=== PATIENT | female | born 1940 | race Caucasian/White ===

== ENCOUNTER 2025-09-20 19:04 | Emergency (ER) | payer OTHER ==
[~2025-09-20] VITALS: Ht 165.1 cm; Wt 47.8 kg
--- NOTE | 2025-09-20 19:55 | DVH ---
COMPUTERIZED TOMOGRAPHY OF THE HEAD WITHOUT CONTRAST REASON FOR STUDY: Fall, head injury, on anticoagulation COMPARISON: None TECHNIQUE: Helical tomographic scans were obtained through the brain. 2-D coronal and sagittal reformatted images are provided. Radiation optimization: All CT scans at this facility use at least one of these dose optimization techniques: Automated exposure control mA and/or kV adjustment per patient size (includes targeted exams where dose is matched to clinical indication) or iterative reconstruction. RADIATION DOSE: CTDI: 50 mGy DLP: 800 mGy-cm FINDINGS: No suspicious intracranial hyperdensity to suggest acute blood. There is no mass effect nor midline shift. There is mild generalized volume loss with compensatory enlargement of the CSF spaces. There is no hydrocephalus. The suprasellar cistern is intact. There are scattered periventricular and deep white matter hypodensities that are most consistent with chronic microangiopathic changes. The calvarium is intact. The visualized mastoid air cells and paranasal sinuses are clear. There is moderate left parietal scalp hematoma. IMPRESSION: No acute intracranial abnormality. Moderate left parietal scalp hematoma. Mild generalized volume loss with chronic small vessel ischemic change.
[2025-09-20 20:10] LABS: INR 1.0 (0.9-1.15); Prothrombin Time 10.6 sec (9.3-11.8)
--- NOTE | 2025-09-20 20:26 | ED.PDOC ---
History of Present Illness HPI Comments 84-year-old female reports she was carrying kidney litter, slipped on a bed of leaves falling and hitting her head. She denies loss of consciousness. She has some mild left lower back pain. Hematoma to the left parietal area. She is on Plavix. Patient denies any dizziness, shortness of breath, chest pain, weakness associated with the event. REVIEW OF SYSTEMS: General: No fever, no chills, or fatigue HEENT: No sore throat, no earache, no congestion, no neck pain. Cardiac: No chest pain. No palpitations. Lungs: No shortness of breath, no cough. GI: No nausea, no vomiting, no diarrhea, no constipation, no abdominal pain : No dysuria, frequency, or urgency. No hematuria. Musculoskeletal: No joint pain , no joint swelling, no extremity edema. Skin: No rash, no itching. Neuro: No headache, no dizziness, no weakness (And as sated in HPI) PHYSICAL EXAM: GEN: Patient alert, in no acute distress HEENT: HEMATOMA TO LEFT PARIETAL SCALP. NO OVERLYING LACERATION Facial bones without deformities or tenderness EYES: no scleral icterus or conjunctival injection. Extraocular muscles intact without nystagmus or diplopia. No proptosis or enophthalmos. EARS: Normal-appearing pinnae. NECK: No discolorations or edema. No C-spine tenderness. CVS: S1-S2 heard, regular rate and rhythm, no murmur RESPIRATORY: No respiratory distress. MUSC: No gross deformities. Tolerates full range of motion of extremities without tenderness. BACK: Spine without bony tenderness. No step-offs. PELVIC: Pelvis stable, nontender to lateral compression NEURO: Alert and oriented to person, place and time. GCS 15. Cranial nerves II through XII intact. Sensation grossly intact. Strength 5 out of 5 in bilateral upper and lower extremities. Patient is able to ambulate swiftly without difficulty. Able to get it up and down from a chair without difficulty SKIN: Warm and well perfused. No lacerations, bruises, discoloration or abrasions. 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 Was a procedure done?: No Differential Dx Considerations may include: DDX includes MSK trauma, facial fractures, ICH or traumatic SAH, C-spine injury, other X-Ray, Labs, Meds, VS Vital Signs Date Time Temp Pulse Resp B/P (MAP) Pulse Ox O2 Delivery O2 Flow Rate FiO2 09/20/25 19:06 97.5 67 22 142/74 95 97.5 Lab Test 09/20/25 19:44 Range/Units Prothrombin Time 10.6 9.3-11.8 sec Prothrombin Time INR 1.00 0.9-1.15 Time of 1ST Reevaluation: 20:18 Reevaluation 1ST: Unchanged Patient Education/Counseling: Need For Follow Up Family Education/Counseling: No Family Present SEPSIS Sepsis Screen Date sepsis recognized/suspect: Sep 20, 2025 Time Sepsis recognized/suspect: 1912 Recent Procedure: No On Antibiotic Therapy: No Respiratory Rate >20: No Heart Rate >90: No Temp<36 C (96.8 F) or >38.3 C: No SBP <90 or MAP <65 mmHG: No New Acute Mental Status Change: No Is the patient on CPAP, BIPAP,: No Physician Orders Head Without Contrast (09/20/25 19:15) Naproxen Tablet (Naprosyn Tablet) (09/20/25 20:30) Acetaminophen Tab Or Cap (Tylenol Tablet (09/20/25 20:30) Apply Ice To Affected Area (09/20/25 20:16) Vital Signs Date Time Temp Pulse Resp B/P (MAP) Pulse Ox O2 Delivery O2 Flow Rate FiO2 09/20/25 19:06 97.5 67 22 142/74 95 97.5 Departure 1 Departure Time of Disposition: 20:24 Impression: Primary Impression: Head injury Additional Impressions: Fall Back pain Disposition: HOME / SELF CARE / HOMELESS Condition: Stable Additional Instructions: ED DISCHARGE INSTRUCTIONS Instructions: Please read all instructions provided in this packet carefully. Although you have been discharged from the Emergency Department, this does not mean that you have a "clean bill of health". No definitive diagnosis for your symptoms has been made today. It is possible that you are in the process of developing a serious illness. This is why you must return to the ED without fail if any new or worsening symptoms (especially if your symptoms include chest pain, trouble breathing, abdominal pain, fever, headache, confusion, trouble seeing, or trouble walking) It is also very important that you see a primary care provider (PCP) within the next 3-5 days to follow up. If you are unable to get an appointment, return to the ED for re-evaluation. Overview Headaches have many possible causes. Most headaches aren't a sign of a more serious problem, and they will get better on their own. Home treatment may help you feel better faster. The doctor has checked you carefully, but problems can develop later. If you notice any problems or new symptoms, get medical treatment right away. Follow-up care is a mont[place]ongo part of your treatment and safety. Be sure to make and go to all appointments, and call your doctor if you are having problems. It's also a good idea to know your test results and keep a list of the medicines you take. How can you care for yourself at home? Rest in a quiet, dark room until your headache is gone. Close your eyes and try to relax or go to sleep. Don't watch TV or read. Put a cold, moist cloth or cold pack on the painful area for 10 to 20 minutes at a time. Put a thin cloth between the cold pack and your skin. Use a warm, moist towel or a heating pad set on low to relax tight shoulder and neck muscles. Have someone gently massage your neck and shoulders. Take pain medicines exactly as directed. If the doctor gave you a prescription medicine for pain, take it as prescribed. If you are not taking a prescription pain medicine, ask your doctor if you can take an [id number] medicine. Do not ignore new symptoms that occur with a headache, such as a fever, weakness or numbness, vision changes, or confusion. These may be signs of a more serious problem. To prevent headaches Keep a headache diary so you can figure out what triggers your headaches. Avoiding triggers may help you prevent headaches. Record when each headache began, how long it lasted, and what the pain was like (throbbing, aching, stabbing, or dull). Write down any other symptoms you had with the headache, such as nausea, flashing lights or dark spots, or sensitivity to bright light or loud noise. Note if the headache occurred near your period. List anything that might have triggered the headache, such as certain foods (chocolate, cheese, wine) or odors, smoke, bright light, stress, or lack of sleep. Find healthy ways to deal with stress. Headaches are most common during or right after stressful times. Take time to relax before and after you do something that has caused a headache in the past. Try to keep your muscles relaxed by keeping good posture. Check your jaw, face, neck, and shoulder muscles for tension, and try relaxing them. When sitting at a desk, change positions often, and stretch for 30 seconds each hour. Get plenty of sleep and exercise. Eat regularly. Long periods without food can trigger a headache. Limit caffeine by not drinking too much coffee, tea, or soda. But don't quit caffeine suddenly, because that can also give you headaches. Reduce eyestrain from computers by blinking frequently and looking away from the computer screen every so often. Make sure you have proper eyewear and that your monitor is set up properly, about an arm's length away. When should you call for help? Call 911 anytime you think you may need emergency care. For example, call if: You have signs of a stroke. These may include: Sudden numbness, paralysis, or weakness in your face, arm, or leg, especially on only one side of your body. Sudden vision changes. Sudden trouble speaking. Sudden confusion or trouble understanding simple statements. Sudden problems with walking or balance. A sudden, severe headache that is different from past headaches. Call your doctor now or seek immediate medical care if: You have a fever and a stiff neck. You have new nausea and vomiting, or you cannot keep down food or fluids. Your headache gets much worse. Watch closely for changes in your health, and be sure to contact your doctor if: Your headaches get worse, happen more often, or change in some way. You have new symptoms. Your life is disrupted by your headaches. For example, you often miss work, school, or other activities. You do not get better as expected. e-Prescriptions No Active Prescriptions or Reported Meds Comments MDM: 84-year-old female who presents with headache after head injury. CT head reviewed, shows no acute intracranial process or skull fracture. No focal neurological symptoms. Neuro exam is benign. Pt is nontoxic. VSS. Based on history and normal neurological exam I have low suspicion for intracranial bleed, skull fracture, concussion, cardiac event, spinal fracture, long bone fracture, hip fracture. Most likely patient has benign headache, recommend rest, hydration, and OTC pain control. - I reviewed the following notes from the pt's past medical encounters: N/A The following tests were ordered, and results were reviewed by me: (See diagnostic results section) The following test were independently interpreted by me: N/A Additional information was gathered from interviewing the following independent historians: Patient's daughter I reviewed and agreed with the following test results read by other providers: CT head I discussed treatments and results with patient and daughter Decision regarding hospitalization or escalation of hospital level of care: Risks and benefits of admission for further treatment of patient's condition was considered however due to patient's stable condition patient will be discharged to follow up closely or return to care for worsening of condition or inability to follow up. Critical Care Note Critical Care Time?: No Stability Stability form required: No Heart Score Heart Score: Heart Score Response (Comments) Value History N/A 0 EKG N/A 0 Age N/A 0 Risk Factors N/A 0 Troponin N/A 0 Total 0 ALESSANDRO HEIN MD Sep 20, 2025 20:26
[2025-09-20] MEDS: ACETAMINOPHEN 500 MG TAB or CAP PO ONE (21:18)
[2025-09-20] MEDS: NAPROXEN 500 MG TAB PO ONE (21:19)
[2025-09-20 21:22] VITALS: PULSE 65; RESP 18; TEMP 97.5; O2SAT 96
[2025-09-20 21:47] VITALS: BP 189/78
== END 2025-09-20 21:31 | disposition home or self-care (01) ==
LOC: ER 19:04
DX: S00.03XA Contusion of scalp, initial encounter (principal); M54.50 Low back pain, unspecified; I10 Essential (primary) hypertension; E78.5 Hyperlipidemia, unspecified; F17.210 Nicotine dependence, cigarettes, uncomplicated; W22.03XA Walked into furniture, initial encounter; Y93.89 Activity, other specified; Y92.89 Other specified places as the place of occurrence of the external cause; Y99.8 Other external cause status
CPT/HCPCS: 36415; 70450; 85610

== ENCOUNTER 2025-10-28 10:54 | Inpatient (IN) | payer OTHER ==
[~2025-10-28] VITALS: Ht 166.4 cm; Wt 47.0 kg
--- NOTE | 2025-10-28 11:20 | ED.PDOC ---
History of Present Illness HPI Comments 84 y/o underweight F is BIBA from private residence for c/c of nonradiating, substernal chest pain. Per EMS personnel report, patient endorses on having 10/10, heavy pain, that feels as if 'another person is standing on [her] chest.' Associated nausea and vomiting and generalized weakness. No reported bloody or bilious vomitus, abdominal pain, shortness of breath, or further acute symptoms. 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 Patient is on Plavix, currently. Prior to ED arrival, patient was given 324mg ASA, with pain, now, being a 0/10. Per previous [facility] medical records, patient has additional history of ACS, HLD, HTN, UTI's, and tobacco cigarette use. 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 Past Medical History PAST MEDICAL HISTORY: High Lipids, HTN, CA (STEMI), UTI'S Past Medical History (Other): History of Plavix use ACS Surgical History: Denies all surgeries WILDLIFE REFUGE SPECIALIST History: No Pertinent WILDLIFE REFUGE SPECIALIST History Family History Family History: No family hx of Cancer, No family hx of DM, Family hx of heart dinesh Social History Smoker: Cigarettes Alcohol: Occasionally Drugs: Marijuana Lives In: Home All Other Systems: Reviewed and Negative (As per HPIComprehensive systems review obtained and negative except for what is stated in the HPI.) Physical Exam General Appearance: No Apparent Distress, Thin, Other (chronically ill- appearing ) HEENT: Normal ENT Inspection, Pharynx Normal, TMs Normal Neck: Full Range of Motion, Non-Tender, Normal, Normal Inspection Respiratory: Chest Non-Tender, Lungs Clear, No Accessory Muscle Use, No Respiratory Distress, Normal Breath Sounds Cardiovascular: No Edema, No JVD, No Murmur, No Gallop, Normal Peripheral Pulses, Regular Rate/Rhythm Breast Exam: Deferred Gastrointestinal: No Organomegaly, Non Tender, No Pulsatile Mass, Normal Bowel Sounds, Soft Genitalia: Deferred Pelvic: Deferred Rectal: Deferred Extremities: No calf tenderness, Normal capillary refill, Normal inspection, Normal range of motion, Non-tender, No pedal edema Musculoskeletal : Apperance: Normal Neurologic: Alert, oil field worker II-XII nml as Tested, No Motor Deficits, Normal Affect, Normal Mood, No Sensory Deficits Cerebellar Function: Normal Reflexes: Normal Skin: Dry, Normal Color, Warm Lymphatic: No Adenopathy Was a procedure done? Was a procedure done?: No EKG EKG : Pulse Rate (adult): 104 [place]: Normal Cardiac Rhythm: ST Block: None Hypertrophy: None ST: Normal Differential Dx Considerations may include: AMI, PE, ACS, CAD, URI, PNA, angina, anxiety, gastritis, gastroenteritis, electrolyte imbalance, viral, musculoskeletal pain, among others X-Ray, Labs, Meds, VS Vital Signs Date Time Temp Pulse Resp B/P (MAP) Pulse Ox O2 Delivery O2 Flow Rate FiO2 10/28/25 12:40 101 10/28/25 11:20 104 10/28/25 10:55 99.1 110 16 155/72 97 99.1 10/28/25 10:55 104 Lab Test 10/28/25 12:05 10/28/25 11:10 Range/Units Troponin I High Sensitivity 583 *H 262 *H </=34 ng/L White Blood Count 14.9 H 4.4-10.8 10^3/uL Red Blood Count 4.95 4.0-5.20 10^6/uL Hemoglobin 14.1 12.2-16.2 g/dL Hematocrit 42.3 36.0-46.0 % Mean Corpuscular Volume 85.3 80.0-100.0 fL Mean Corpuscular Hemoglobin 28.4 28.0-32.0 pg Mean Corpuscular Hemoglobin Concent 33.3 32.0-36.0 g/dL Red Cell Distribution Width 14.9 H 11.8-14.3 % Platelet Count 421 140-450 10^3/uL Mean Platelet Volume 8.1 6.9-10.8 fL Neutrophils (%) (Auto) 87.2 H 37.0-80.0 % Lymphocytes (%) (Auto) 2.5 L 10.0-50.0 % Monocytes (%) (Auto) 9.0 0.0-12.0 % Eosinophils (%) (Auto) 0.2 0.0-7.0 % Basophils (%) (Auto) 1.1 0.0-2.0 % Neutrophils # (Auto) 13.0 H 1.6-8.6 10 ^3/uL Lymphocytes # (Auto) 0.4 0.4-5.4 10 ^3/uL Monocytes # (Auto) 1.3 0-1.3 10 ^3/uL Eosinophils # (Auto) 0 0-0.8 10 ^3/uL Basophils # (Auto) 0.2 0-0.2 10 ^3/uL Nucleated Red Blood Cells 0.0 % Sodium Level 138 136-145 mmol/L Potassium Level 4.0 3.5-5.1 mmol/L Chloride Level 103 98-107 mmol/L Carbon Dioxide Level 24 20-31 mmol/L Anion Gap 11 5-15 Blood Urea Nitrogen 19 9-23 mg/dL Creatinine 1.29 H 0.550-1.02 mg/dL Glomerular Filtration Rate Calc 41 >90 mL/min BUN/Creatinine Ratio 14.7 10.0-20.0 Serum Glucose 121 H 74-106 mg/dL Calcium Level 9.8 8.7-10.4 mg/dL Time of 1ST Reevaluation: 11:30 Reevaluation 1ST: Unchanged Patient Education/Counseling: Diagnosis, Treatment, Other (Need for hospital admission ) Family Education/Counseling: No Family Present Additional Information Previous history reviewed: September 30, 2019 encounter for STEMI The following tests were ordered, and results were reviewed by me: Troponin, UA, CBC, BMP, CXR Additional Information was gathered from interviewing the following independent historians: EMS personnel I reviewed and agreed with the following test results read by other providers: CT head w/o contrast I discussed treatment and results with medical personnel and: patient SEPSIS Sepsis Screen Date sepsis recognized/suspect: Oct 28, 2025 Time Sepsis recognized/suspect: 1055 Recent Procedure: No On Antibiotic Therapy: No Respiratory Rate >20: No Heart Rate >90: Yes Temp<36 C (96.8 F) or >38.3 C: No SBP <90 or MAP <65 mmHG: No New Acute Mental Status Change: No Is the patient on CPAP, BIPAP,: No Physician Orders Electrocardigram (10/28/25 11:05) Electrocardigram (10/28/25 12:05) Electrocardigram (10/28/25 14:05) Urinalysis (10/28/25 11:05) Chest Portable (10/28/25 11:05) Head Without Contrast (10/28/25 11:05) Electrocardigram (10/28/25 11:05) Troponin-I Hs (10/28/25 14:05) Electrocardigram (10/28/25 12:05) Electrocardigram (10/28/25 14:05) * Cardiology Consult (10/28/25 12:53) Platelet Monitoring (10/28/25 12:53) Heparin Per Standardized Proce (10/28/25 12:53) Discontinue All Im Injections (10/28/25 12:53) PTPTT (10/28/25 12:53) Heparin Sodium (Porcine) (10/28/25 13:00) Heparin Drip/D5w 100units/Ml (10/28/25 13:00) Stat Ekg For Chest Pain (10/28/25 12:53) Vital Signs Date Time Temp Pulse Resp B/P (MAP) Pulse Ox O2 Delivery O2 Flow Rate FiO2 10/28/25 12:40 101 10/28/25 11:20 104 10/28/25 10:55 99.1 110 16 155/72 97 99.1 10/28/25 10:55 104 Laboratory Tests Test 10/28/25 11:10 White Blood Count 14.9 10^3/uL (4.4-10.8) H Departure 1 Departure Time of Disposition: 12:57 (Patient presented with chest pain that was concerning for possible STEMI, ACS, PE, Pneumonia, Muscle Strain, COPD, Dissection. Data: 1. I ordered and reviewed the result of at least 3 labs including a CBC, BMP, and Troponin. 2. I independently interpreted the following tests: EKG which shows sinus arrhythmia and Chest X-ray which shows benign chest.Risk:This patient has a high risk of morbidity due to further diagnostic testing or treatment and may suffer from an acute cardiac or respiratory disorder. Workup reveals _ NSTEMI and patient should be admitted for further workup and possible expert consultation. ) Impression: Primary Impression: NSTEMI (non-ST elevated myocardial infarction) Additional Impressions: Acute chest pain Frequent falls Disposition: ADMITTED INPATIENT Admit to: Tele Condition: Serious e-Prescriptions No Active Prescriptions or Reported Meds Critical Care Note Critical Care Time?: Yes Critical care comment: NSTEMI Authorized and Performed by: Jhoan Gasca MD Total critical care time: Approximately 38 minutes Due to a high probability of clinically significant, life threatening deterioration, the patient required my highest level of preparedness to intervene emergently and I personally spent this critical care time directly and personally managing the patient. This critical care time included obtaining a history; examining the patient; pulse oximetry; ordering and review of studies; arranging urgent treatment with development of a management plan; evaluation of patient's response to treatment; frequent reassessment; and, discussions with other providers. This critical care time was performed to assess and manage the high probability of imminent, life-threatening deterioration that could result in multi-organ failure. It was exclusive of separately billable procedures and treating other patients and teaching time. Please see my other sections and the rest of the note for further information on patient assessment and treatment. Stability Stability form required: No Heart Score Heart Score: Heart Score Response (Comments) Value History Moderate Suspicious 1 EKG Normal 0 Age >65 2 Risk Factors >3 or Hx ASHD 2 Troponin >3 x's Normal limit 2 Total 7 I personally scribed for JHOAN GASCA MD ([email or web address]) on 10/28/25 at 11:20. Electronically submitted by Michael Crowe ([email or web address]). JHOAN GASCA MD Oct 28, 2025 11:20
[2025-10-28 11:27] LABS: Hematocrit 42.3 % (36.0-46.0); Hemoglobin 14.1 g/dL (12.2-16.2); Mean Corpuscular Hemoglobin 28.4 pg (28.0-32.0); Mean Corpuscular Volume 85.3 fL (80.0-100.0); Nucleated Red Blood Cells % 0.0 %
[2025-10-28 11:28] LABS: Chloride 103 mmol/L (98-107); Potassium 4.0 mmol/L (3.5-5.1); Sodium 138 mmol/L (136-145)
[2025-10-28 11:29] LABS: Anion Gap 11 (5-15); Calcium 9.8 mg/dL (8.7-10.4); Carbon Dioxide 24 mmol/L (20-31)
[2025-10-28 11:34] LABS: BUN/Creatinine Ratio 14.7 (10.0-20.0); Blood Urea Nitrogen 19 mg/dL (9-23)
[2025-10-28 11:37] LABS: Glucose 121 mg/dL (74-106)
--- NOTE | 2025-10-28 11:52 | DVH ---
CHEST RADIOGRAPH INDICATION: cp TECHNIQUE: Single frontal view of the chest was obtained COMPARISON: None FINDINGS: Lines and Tubes: None Lungs: Congestion Pleura: No effusion. No pneumothorax. Cardiomediastinal contours: Unremarkable Bones: Unremarkable IMPRESSION: Increased interstital prominence. This may represent pulmonary vascular congestion and/or viral pneumonia. Clinical correlation advised.
--- NOTE | 2025-10-28 11:54 | DVH ---
CT HEAD WITHOUT CONTRAST INDICATION: cp EXAM DATE: 10/28/2025 11:26 AM COMPARISON: CT HEAD WITHOUT CONTRAST on DOS: 09/20/25 TECHNIQUE: CT of the head without intravenous contrast. RADIATION DOSE: CTDIvol: 53 mGy, DLP: 840 mGy*cm FINDINGS: There is no intracranial hemorrhage. There is no extra-axial fluid, mass, mass effect or midline shift. The ventricles are midline and normal in size. Basilar cisterns are patent. Mild periventricular and subcortical white matter chronic microvascular ischemic changes. Mild global cerebral volume loss. Cavum septum pellucidum is noted. The paranasal sinuses and mastoids are well-pneumatized. Imaged portion of the orbits are unremarkable. IMPRESSION: No intracranial hemorrhage or mass effect. Mild chronic microvascular ischemic changes. Mild global cerebral volume loss.
[2025-10-28 13:09] LABS: Urine Protein, UAD Negative (Negative)
[2025-10-28 13:28] LABS: INR 0.97 (0.9-1.15); Partial Thromboplastin Time 26.0 SEC (24.5-34.5); Prothrombin Time 10.3 sec (9.3-11.8)
[2025-10-28] MEDS ORDERED: HYDROcodone-ACET 5/325MG TAB PO PRN (13:45)
[2025-10-28] MEDS ORDERED: ACETAMINOPHEN 325 MG TAB PO PRN (13:45)
[2025-10-28 13:56] VITALS: PULSE 94; RESP 21; O2SAT 99
--- NOTE | 2025-10-28 14:00 | CONS ---
Pharmacy Clinical Information: HEPARIN PER ACS PROTOCOL: APTT baseline drawn on 10/28 @1110. Bolus of 3000 units + initial rate of 600 units per hour (13mL/hr) Orders read back and confirmed with SHAMIR Velarde @1350. Next APTT scheduled for 1999. AMBER PAUL PHARMACIST Oct 28, 2025 14:00
[2025-10-28] MEDS ORDERED: MORPHINE SULFATE 4 MG/ML SYR/VIAL IV PRN ×2 (14:15)
[2025-10-28] MEDS: HEPARIN SODIUM (PORCINE) 5000 UNITS/ML 1ML VIAL IV ONE ×2 (14:15→14:27)
[2025-10-28] MEDS: HEPARIN DRIP/D5W 100UNITS/ML 250 ML IV SCH (14:28)
[2025-10-28] MEDS: SODIUM CHLORIDE 0.9% 1,700 ML IV ONE (14:57)
[2025-10-28] MEDS ORDERED: LABETALOL HCL 20 MG/4 ML VL IV PRN (15:15)
[2025-10-28] MEDS: LABETALOL HCL 20 MG/4 ML VL IV ONE ×2 (15:39)
[2025-10-28] MEDS: VANCOMYCIN 1GM/250ML KIT 250 ML IV ONE (15:46)
[2025-10-28 15:52] LABS: Lactic Acid w/Reflex 2.2 mmol/L (0.4-2.0)
--- NOTE | 2025-10-28 16:25 | DVHINCON2 ---
Date Seen: Oct 28, 2025 Referring Physician MD Elo Reason for Consultation NSTEMI History of Present Illness This is an 84-year-old female patient who presents to emergency room with chief complaint of chest pain. The patient reports that the pain began earlier today. She describes the pain as unprovoked, constant, pressure-like in nature, substernal, and nonradiating. Associated symptoms include shortness of breath and nausea. Initial twelve lead electrocardiogram reveals sinus tachycardia with global ST segment depression. Initial troponin level of 262ng/L with up trend and current peak level of 1622ng/L. Significant medical history includes coronary artery disease without catheter based intervention (on Plavix and ASA therapy), hypertension, dyslipidemia, COPD, and tobacco use. The patient follows up with mower mechanic in the outpatient setting. The the patient underwent a coronary angiogram on 09/30/2019 which revealed moderate RCA stenosis without catheter based intervention. The patient has been treated medically by her primary mower mechanic. Past Medical History Past medical history reviewed. No other significant than mentioned above. Past Surgical History Denies Family History Family history reviewed. Social History Patient has a 50 pack-year history, smokes 2-3 cigarettes per day now Denies illicit drug use Denies alcohol use Allergies: Coded Allergies: NO KNOWN ALLERGIES (Unverified , 09/30/19) Home Meds No Active Prescriptions or Reported Meds Home Meds Home medications reviewed. Current Medications Current Medications Medications (Trade) Dose Ordered Sig/Anupama Route PRN Reason Start Time Stop Time Status Last Admin Heparin Sodium/ Dextrose 250 ml @ 6 mls/hr Q24H IV 10/28/25 14:00 10/28/25 14:28 Acetaminophen (Tylenol Tablet) 325 mg Q4HP PRN PO MILD PAIN (1-3 PAIN SCALE) 10/28/25 13:45 Acetaminophen/ Hydrocodone Bitart ([place] 5/325MG Tab) 1 tab Q4HP PRN PO MODERATE PAIN (4-6 PAIN SCALE) 10/28/25 13:45 Morphine Sulfate 2 mg Q4HPRN PRN IV SEVERE PAIN (7-10 PAIN SCALE) 10/28/25 14:15 Nitroglycerin (Ntrostat Sublingual) 0.4 mg Q5MINP PRN SL FOR CHEST PAIN 10/28/25 13:45 Morphine Sulfate 2 mg Q30M PRN IV FOR CHEST PAIN 10/28/25 14:15 Labetalol HCl (Labetalol HCl) 10 mg Q4HP PRN IV SBP>160 10/28/25 15:15 Review of Systems Constitutional: No symptom reported Ears, Nose, & Throat: No symptom reported Eyes: No symptom reported Neurological: No symptoms reported Pulmonary/Respiratory: Shortness of breath Cardiovascular: Chest pain Gastrointestinal: Nausea Genitourinary: No symptom reported Musculoskeletal: No symptom reported Skin: No symptom reported Psychiatric: No symptom reported Endocrine: No symptom reported Hematologic/Lymphatic: No symptom reported Vital Signs Vital Signs Date Time Temp Pulse Resp B/P (MAP) Pulse Ox O2 Delivery O2 Flow Rate FiO2 10/28/25 16:00 98.0 91 20 143/69 (93) 97 98.0 10/28/25 13:56 Room Air* 0 21 Physical Exam General Appearance: Cooperative. Thin, frail Pulmonary/Respiratory: Clear, bilateral breaths sounds. Cardiovascular/Chest: Regular rate and rhythm. Peripheral Pulses: 2+ Radial (R). 2+ Radial (L). 2+ Pedal (R). 2+ Pedal (L) Abdominal Exam: Normal bowel sounds. Ankle Exam: Negative ankle edema Lower extremities: Negative lower extremity edema Neuro/Mental Status: A/OX4, coherent. Thoughts/Psych: Normal thought pattern. Appropriate mood and affect. Good judgment and insight. Appearance: No acute distress. Skin Exam: Normal inspection. Normal color. Warm and dry. Labs/Diagnostic Data Labs Test 10/28/25 15:05 10/28/25 14:25 10/28/25 12:59 10/28/25 11:10 Range/Units Lactic Acid Level 2.2 *H 0.4-2.0 mmol/L Troponin I High Sensitivity 1622 *H </=34 ng/L Urine Color Yellow Yellow Urine Clarity Clear Clear Urine pH 5.5 5.0-9.0 Urine Specific [place] 1.016 1.001-1.035 Urine Protein Negative Negative Urine Ketones 1+ H Negative Urine Blood Negative Negative /uL Urine Nitrite Negative Negative Urine Bilirubin Negative Negative Urine Urobilinogen Normal Negative mg/dL Urine Leukocyte Esterase Trace Negative /uL Urine RBC <1 0 - 4 /hpf Urine Microscopic WBC 3 0-5 /HPF Urine Squamous Epithelial Cells Few <5 /hpf Urine Bacteria None seen None Seen /hpf Urine Mucus Few None Seen Urine Glucose Normal Normal mg/dL White Blood Count 14.9 H 4.4-10.8 10^3/uL Red Blood Count 4.95 4.0-5.20 10^6/uL Hemoglobin 14.1 12.2-16.2 g/dL Hematocrit 42.3 36.0-46.0 % Mean Corpuscular Volume 85.3 80.0-100.0 fL Mean Corpuscular Hemoglobin 28.4 28.0-32.0 pg Mean Corpuscular Hemoglobin Concent 33.3 32.0-36.0 g/dL Red Cell Distribution Width 14.9 H 11.8-14.3 % Platelet Count 421 140-450 10^3/uL Mean Platelet Volume 8.1 6.9-10.8 fL Neutrophils (%) (Auto) 87.2 H 37.0-80.0 % Lymphocytes (%) (Auto) 2.5 L 10.0-50.0 % Monocytes (%) (Auto) 9.0 0.0-12.0 % Eosinophils (%) (Auto) 0.2 0.0-7.0 % Basophils (%) (Auto) 1.1 0.0-2.0 % Neutrophils # (Auto) 13.0 H 1.6-8.6 10 ^3/uL Lymphocytes # (Auto) 0.4 0.4-5.4 10 ^3/uL Monocytes # (Auto) 1.3 0-1.3 10 ^3/uL Eosinophils # (Auto) 0 0-0.8 10 ^3/uL Basophils # (Auto) 0.2 0-0.2 10 ^3/uL Nucleated Red Blood Cells 0.0 % Prothrombin Time 10.3 9.3-11.8 sec Prothrombin Time INR 0.97 0.9-1.15 Activated Partial Thromboplast Time 26.0 24.5-34.5 SEC Sodium Level 138 136-145 mmol/L Potassium Level 4.0 3.5-5.1 mmol/L Chloride Level 103 98-107 mmol/L Carbon Dioxide Level 24 20-31 mmol/L Anion Gap 11 5-15 Blood Urea Nitrogen 19 9-23 mg/dL Creatinine 1.29 H 0.550-1.02 mg/dL Glomerular Filtration Rate Calc 41 >90 mL/min BUN/Creatinine Ratio 14.7 10.0-20.0 Serum Glucose 121 H 74-106 mg/dL Calcium Level 9.8 8.7-10.4 mg/dL Assessment NSTEMI, likely type 1 History of coronary artery disease (on aspirin and Plavix therapy) Rule out structural heart disease Hypertension Dyslipidemia Sepsis COPD Tobacco use Cachexia Plan/Recommendation We will continue with the following plan/recommendations (Dr. Verduzco): * Transthoracic echocardiogram to evaluate cardiac function * Chest pain protocol * CARMELO score: 7 points * HEART score: 9 points * Heparin drip per ACS protocol * Continue dual antiplatelet therapy and lipid-lowering agent * Close cardiac surveillance Patient seen and examined at bedside with . We will proceed with obtaining a transthoracic echocardiogram to evaluate cardiac function and assess for wall motion abnormalities. Given the patient's clinical presentation, up- trending troponin level, comorbidities, and twelve lead electrocardiogram changes, progressive coronary artery disease is highly suspected. At this time, the patient reports that she does not want any invasive cardiac procedures. The patient reports that she has been managed medically by her primary mower mechanic and would like to continue with conservative medical management only. An extensive conversation was had with the patient regarding risks of not undergoing coronary angiogram which can include . Patient understands that she is taking a risk by not undergoing coronary angiogram and she wishes to p roceed with conservative medical management only. We will respectfully follow patient wishes. Continue with the aforementioned medical plan of care.Thank you for allowing us to care for this patient. Please call with any questions or concerns. Critical care time spent: 44 minutes This medical document was created using an electronic medical record system with voice recognition software and computerized dictation system. Although this document has been carefully reviewed, there might still be some phonetic and typographical errors. Occasional wrong-word or ``sound-alike substitutions may have occurred due to the inherent limitations of voice recognition software. These areas are purely typographical due to imperfections of the software pr ograms and do not reflect any compromise in the patient's medical care. Please read the chart carefully and recognize, using context, where these substitutions have occurred. Plan discussed with: Patient NYHA Physical activity limitations: NA Date of Service: Oct 28, 2025 Billing Provider: LEAH MITCHELLP Cardiology Common Codes: [id number] INP/OBS CARE (High) Cardiology Consultation Codes: 90433-[id number] CONSULT <45MIN LEAH MITCHELL [facility] Oct 28, 2025 16:25
--- NOTE | 2025-10-28 17:27 | DVHHP2 ---
Admitting Diagnosis: Patient is an 84-year-old female past medical history of CAD, smoker who presents wt complaints of chest pain for the past day that she described as substernal, pressure-like and nonradiating. At bedside, patient was noted to be chest pain-free. Vitals on arrival were notable for sinus tachycardia hypertension with systolic pressure in the 150s. CBC was notable for leukocytosis of 14.9. BMP was notable for creatinine of 1.29. Troponin was elevated at 262 and anton to 1622. Patient met criteria for sepsis and was started on sepsis protocol due to elevated lactic acid. Patient is noted to have a STEMI 5 years prior in which the left heart cath noted a very small rupture of the diagonal 2 vessel measuring 1.5 mm in size, moderate RCA stenosis. No drug-eluting stent was placed given the small vessel anatomy. Patient is currently taking Plavix and denies taking any other medications at this time. Patient was admitted for NSTEMI and sepsis workup. History of Present Illness HPI Patient is an 84-year-old female past medical history of CAD, smoker who prese [facility] complaints of chest pain for the past day that she described as substernal, pressure-like and nonradiating. At bedside, patient was noted to be chest pain-free. Vitals on arrival were notable for sinus tachycardia hypertension with systolic pressure in the 150s. CBC was notable for leukocytosis of 14.9. BMP was notable for creatinine of 1.29. Troponin was elevated at 262 and anton to 1622. Patient met criteria for sepsis and was started on sepsis protocol due to elevated lactic acid. Patient is noted to have a STEMI 5 years prior in which the left heart cath noted a very small rupture of the diagonal 2 vessel measuring 1.5 mm in size, moderate RCA stenosis. No drug-eluting stent was placed given the small vessel anatomy. Patient is currently taking Plavix and denies taking any other medications at this time. Patient was admitted for NSTEMI and sepsis workup. Home Meds No Active Prescriptions or Reported Meds Past Medical History Cardiac: HTN, [place] Smoker: Positive Alocohol: None Drugs: None Lives with: With family Review of Systems Cardiovascular: Chest Pain H&P Exam Vital Signs Vital Signs Date Time Temp Pulse Resp B/P (MAP) Pulse Ox O2 Delivery O2 Flow Rate FiO2 10/28/25 16:06 98 10/28/25 16:00 98.0 20 143/69 (93) 97 98.0 10/28/25 13:56 Room Air* 0 21 General Appeara: Well developed Pulmonary/Respiratory: Normal breath sounds SEPSIS Sepsis Screen Date sepsis recognized/suspect: Oct 28, 2025 Time Sepsis recognized/suspect: 1355 Recent Procedure: No On Antibiotic Therapy: No Respiratory Rate >20: Yes Heart Rate >90: Yes Temp<36 C (96.8 F) or >38.3 C: No SBP <90 or MAP <65 mmHG: No New Acute Mental Status Change: No Is the patient on CPAP, BIPAP,: No Physician Orders Electrocardigram (10/28/25 11:05) Electrocardigram (10/28/25 12:05) Electrocardigram (10/28/25 14:05) Chest Portable (10/28/25 11:05) Head Without Contrast (10/28/25 11:05) Electrocardigram (10/28/25 11:05) Electrocardigram (10/28/25 12:05) Electrocardigram (10/28/25 14:05) * Cardiology Consult (10/28/25 12:53) Platelet Monitoring (10/28/25 12:53) Heparin Per Standardized Proce (10/28/25 12:53) Discontinue All Im Injections (10/28/25 12:53) Heparin Drip/D5w 100units/Ml (10/28/25 14:00) Stat Ekg For Chest Pain (10/28/25 12:53) Complete Blood Count (10/29/25 04:00) Heparin Per Pharmacy Protocol (10/28/25 14:00) PTPTT (10/28/25 20:00) Admit (10/28/25 13:45) Code Status (10/28/25 13:45) Acetaminophen Tablet (Tylenol Tablet) (10/28/25 13:45) Hydrocodone-Acet 5/325mg Tab (Standard 5/32 (10/28/25 13:45) Comprehensive Metabolic Panel (10/29/25 04:00) Echo 2d Mode Cardiac Dop (10/28/25 13:45) Nitroglycerin Sublingual (Ntrostat Subli (10/28/25 13:45) Notify Of Changes From Base (10/28/25 13:45) Head Of Art For 24 Hours (10/28/25 13:45) Emergency Dysrhythmia Protocol (10/28/25 13:45) Rhythm Strips Once Every Shift (10/28/25 13:45) Oxygen By Nasal Cannula (10/28/25 13:45) Morphine Sulfate Injection (10/28/25 14:15) Morphine Sulfate Injection (10/28/25 14:15) Blood Culture (10/28/25 14:54) * Cardiology Consult (10/28/25 15:10) Labetalol Hcl (Labetalol Hcl) (10/28/25 15:15) Cardiac Diet-2gna,Lofat,Lochol (10/28/25 Dinner) Rapid Influenza A&B (10/28/25 17:14) Covid19 Antigen Yolanda (10/28/25 ) D-Dimer (10/28/25 17:17) Vital Signs Date Time Temp Pulse Resp B/P (MAP) Pulse Ox O2 Delivery O2 Flow Rate FiO2 10/28/25 16:06 98 10/28/25 16:00 98.0 91 20 143/69 (93) 97 98.0 10/28/25 15:47 95 19 150/75 (100) 97 10/28/25 15:47 95 150/75 10/28/25 15:39 159 194/121 10/28/25 15:32 159 27 194/121 (145) 95 10/28/25 15:08 106 10/28/25 15:00 100 20 146/67 (93) 98 10/28/25 14:16 89 10/28/25 13:56 94 21 99 Room Air* 0 21 10/28/25 13:56 98.2 94 21 169/80 (109) 99 98.2 10/28/25 13:06 101 16 162/80 (107) 95 10/28/25 12:40 101 10/28/25 11:20 104 10/28/25 10:55 99.1 110 16 155/72 97 99.1 10/28/25 10:55 104 Laboratory Tests Test 10/28/25 11:10 10/28/25 15:05 White Blood Count 14.9 10^3/uL (4.4-10.8) H Lactic Acid Level 2.2 mmol/L (0.4-2.0) *H Medications Medications Dose Ordered Sig/Anupama Route Start Time Stop Time Status Last Admin Dose Admin Ceftriaxone Sodium 50 ml @ 100 mls/hr ONCE ONCE IV 10/28/25 15:00 10/28/25 15:29 DC 10/28/25 15:13 100 MLS/HR Heparin Sodium (Porcine) 3,000 units ONCE ONCE IV 10/28/25 14:00 10/28/25 14:01 DC 10/28/25 14:27 3,000 UNITS Heparin Sodium/ Dextrose 250 ml @ 6 mls/hr Q24H IV 10/28/25 14:00 10/28/25 14:28 6 MLS/HR Labetalol HCl 10 mg ONCE ONCE IV 10/28/25 15:45 10/28/25 15:46 DC 10/28/25 15:39 10 MG Sodium Chloride 1,700 ml @ 1,700 mls/hr ONCE ONCE IV 10/28/25 15:00 10/28/25 15:59 DC 10/28/25 14:57 1,700 MLS/HR Vancomycin HCl 250 ml @ 250 mls/hr ONCE ONCE IV 10/28/25 15:00 10/28/25 15:59 DC 10/28/25 15:46 250 MLS/HR Labs/Xrays Labs Test 10/28/25 15:05 10/28/25 14:25 10/28/25 12:59 10/28/25 11:10 Range/Units Lactic Acid Level 2.2 *H 0.4-2.0 mmol/L Troponin I High Sensitivity 1622 *H </=34 ng/L Urine Color Yellow Yellow Urine Clarity Clear Clear Urine pH 5.5 5.0-9.0 Urine Specific [place] 1.016 1.001-1.035 Urine Protein Negative Negative Urine Ketones 1+ H Negative Urine Blood Negative Negative /uL Urine Nitrite Negative Negative Urine Bilirubin Negative Negative Urine Urobilinogen Normal Negative mg/dL Urine Leukocyte Esterase Trace Negative /uL Urine RBC <1 0 - 4 /hpf Urine Microscopic WBC 3 0-5 /HPF Urine Squamous Epithelial Cells Few <5 /hpf Urine Bacteria None seen None Seen /hpf Urine Mucus Few None Seen Urine Glucose Normal Normal mg/dL White Blood Count 14.9 H 4.4-10.8 10^3/uL Red Blood Count 4.95 4.0-5.20 10^6/uL Hemoglobin 14.1 12.2-16.2 g/dL Hematocrit 42.3 36.0-46.0 % Mean Corpuscular Volume 85.3 80.0-100.0 fL Mean Corpuscular Hemoglobin 28.4 28.0-32.0 pg Mean Corpuscular Hemoglobin Concent 33.3 32.0-36.0 g/dL Red Cell Distribution Width 14.9 H 11.8-14.3 % Platelet Count 421 140-450 10^3/uL Mean Platelet Volume 8.1 6.9-10.8 fL Neutrophils (%) (Auto) 87.2 H 37.0-80.0 % Lymphocytes (%) (Auto) 2.5 L 10.0-50.0 % Monocytes (%) (Auto) 9.0 0.0-12.0 % Eosinophils (%) (Auto) 0.2 0.0-7.0 % Basophils (%) (Auto) 1.1 0.0-2.0 % Neutrophils # (Auto) 13.0 H 1.6-8.6 10 ^3/uL Lymphocytes # (Auto) 0.4 0.4-5.4 10 ^3/uL Monocytes # (Auto) 1.3 0-1.3 10 ^3/uL Eosinophils # (Auto) 0 0-0.8 10 ^3/uL Basophils # (Auto) 0.2 0-0.2 10 ^3/uL Nucleated Red Blood Cells 0.0 % Prothrombin Time 10.3 9.3-11.8 sec Prothrombin Time INR 0.97 0.9-1.15 Activated Partial Thromboplast Time 26.0 24.5-34.5 SEC Sodium Level 138 136-145 mmol/L Potassium Level 4.0 3.5-5.1 mmol/L Chloride Level 103 98-107 mmol/L Carbon Dioxide Level 24 20-31 mmol/L Anion Gap 11 5-15 Blood Urea Nitrogen 19 9-23 mg/dL Creatinine 1.29 H 0.550-1.02 mg/dL Glomerular Filtration Rate Calc 41 >90 mL/min BUN/Creatinine Ratio 14.7 10.0-20.0 Serum Glucose 121 H 74-106 mg/dL Calcium Level 9.8 8.7-10.4 mg/dL Assessment/Plan Primary Diagnosis 1. NSTEMI Plan 2. Severe Sepsis 3. CAD 4. Hypertension 5. Tobacco Dependence Plan: - Admit to telemetry - On-call cardiology consulted - N.p.o. pending possible left heart cath - Heparin drip - TTE pending - Aspirin, statin ordered - Lipid panel - Hemoglobin A1c ordered - Ceftriaxone and vancomycin ordered for severe sepsis - Blood cultures ordered - Daily CBC and BMP - Full code Plan discussed with: Patient YANI PRADO Oct 28, 2025 17:27
[2025-10-28 17:58] LABS: Triglycerides 111 mg/dL (< 150)
[2025-10-28 18:00] LABS: Cholesterol 272 mg/dL (< 200); HDL Cholesterol 82 mg/dL (40-59)
[2025-10-28] MEDS: ASPirin-EC 81 mg tab PO ONE (18:13)
[2025-10-28] MEDS: IOHEXOL 350 MG/ML 100ML IJ ONE (18:37)
[2025-10-28] MEDS: hydrALAZINE HCL 20 MG/ML VL IV PRN (18:54)
[2025-10-28 19:03] LABS: COVID19 ANTIGEN SOFIA FIA NEGATIVE (NEGATIVE)
[2025-10-28 19:32] VITALS: PULSE 100; RESP 20; O2SAT 97
--- NOTE | 2025-10-28 19:32 | DVH ---
CTA Chest with intravenous contrast INDICATION: Rule out PE, elevated D dimer COMPARISON: XY CHEST PORTABLE on DOS: 10/28/25 TECHNIQUE: Multidetector spiral CTA of the chest was performed of the chest with intravenous contrast. PULMONARY ANGIOGRAPHY PROTOCOL was utilized using a bolus- tracking technique centered on the main pulmonary artery. Axial, coronal and sagittal multiplanar and MIP reformats were performed. Radiation Dose : 1. Chest: CTDI volume is 5.91 mGy. Dose-length product is 222.32 mGy*cm The dose indicators for CT are the volume Computed Tomography (CT) Dose Index (CTDIvol) and the Dose Length Product (DLP), and are measured in units of mGy and mGy-cm, respectively. These indicators are not patient dose, but values generated from the CT scanner acquisition factors. The report includes radiation exposure data for exposures received during this examination. Contrast: 75 cc Omnipaque 350. FINDINGS: Pulmonary artery: No pulmonary embolism Lower neck: Normal thyroid. Lungs: Central airways patent. Mild diffuse bronchial wall thickening. Very minimal interlobular septal thickening. Lungs otherwise generally clear. Heart/Vascular Structures: Normal heart size. Coronary calcifications. No pericardial effusion. Lymph Nodes: No adenopathy Pleura: No pleural effusion or significant pneumothorax. Musculoskeletal: No acute osseous abnormality. Soft tissues: Normal. Upper abdomen: Limited portions of the upper abdomen are unremarkable. IMPRESSION: No pulmonary embolism. Mild interstitial edema.
[2025-10-28 20:27] LABS: INR 1.05 (0.9-1.15); Partial Thromboplastin Time 56.2 SEC (24.5-34.5); Prothrombin Time 11.1 sec (9.3-11.8)
[2025-10-28 21:37] VITALS: BP 158/73; PULSE 90; RESP 18; TEMP 98.6; O2SAT 96
[2025-10-28] MEDS: NITROGLYCERIN 0.4 MG SL TAB SL PRN (21:57)
[2025-10-28] MEDS ORDERED: BECL80AE11 PO (22:00)
[2025-10-28] MEDS ORDERED: MET50T PO (22:00)
[2025-10-28] MEDS ORDERED: AMLO1TAB22 PO (22:00)
[2025-10-28] MEDS ORDERED: CLOP75TA70 PO (22:00)
[2025-10-28] MEDS ORDERED: RANO500T3 PO (22:00)
[2025-10-28] MEDS ORDERED: ALBU108A5 INH (22:00)
[2025-10-28] MEDS: ATORVASTATIN 20 MG TAB PO SCH (22:24)
[2025-10-28] MEDS: METOPROLOL TARTRATE 25 MG TAB PO SCH (22:24)
[2025-10-29] VITALS (7 sets, daily range): BP systolic 109–144; BP diastolic 58–72; PULSE 75–95; RESP 16–20; TEMP 36.7; O2SAT 94–98
[2025-10-29 02:25] LABS: INR 1.03 (0.9-1.15); Partial Thromboplastin Time 47.6 SEC (24.5-34.5); Prothrombin Time 10.9 sec (9.3-11.8)
[2025-10-29] MEDS: HEPARIN DRIP/D5W 100UNITS/ML 250 ML IV SCH (03:00)
[2025-10-29 06:36] LABS: Hematocrit 36.7 % (36.0-46.0); Hemoglobin 12.4 g/dL (12.2-16.2); Mean Corpuscular Hemoglobin 28.7 pg (28.0-32.0); Mean Corpuscular Volume 85.1 fL (80.0-100.0); Nucleated Red Blood Cells % 0.1 %
[2025-10-29 07:02] LABS: Alanine Aminotransferase 15 U/L (7-40); Albumin 3.5 g/dL (3.2-4.8); Alkaline Phosphatase 73 U/L (46-116); Anion Gap 11 (5-15); BUN/Creatinine Ratio 15.4 (10.0-20.0); Blood Urea Nitrogen 12 mg/dL (9-23); Calcium 8.8 mg/dL (8.7-10.4); Carbon Dioxide 24 mmol/L (20-31); Chloride 106 mmol/L (98-107); Glucose 103 mg/dL (74-106); Potassium 3.8 mmol/L (3.5-5.1); Sodium 141 mmol/L (136-145)
[2025-10-29 07:03] LABS: Bilirubin, Total 0.6 mg/dL (0.2-1.0)
[2025-10-29 07:04] LABS: Total Protein 5.4 g/dL (5.7-8.2)
--- NOTE | 2025-10-29 07:04 | ECG ---
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
--- NOTE | 2025-10-29 07:05 | ECG ---
[facility] Test Date: 2025-10-28 Test Time: 15:08:14 Pat Name: BNEITO FISHER Department: [facility] ED Patient ID: [id number] Room: [facility]0T A Gender: F Literature Teacher: tracy : 1940 Requested By: JHOAN HUNTER Order Number: [id number] Reading MD: Ramon Naik Measurements Intervals [place] Rate: 106 P: 85 AR: 163 QRS: 37 QRSD: 80 T: 247 QT: 289 QTc: 384 Interpretive Statements Sinus tachycardia Consider left atrial enlargement Repol abnrm suggests ischemia, anterolateral Electronically Signed On 10-31-2025 15:23:22 PST by Ramon Naik Please click the below link to view image of tracing.
[2025-10-29 09:49] LABS: INR 1.03 (0.9-1.15); Partial Thromboplastin Time 58.3 SEC (24.5-34.5); Prothrombin Time 10.9 sec (9.3-11.8)
[2025-10-29] MEDS: CLOPIDOGREL BISULFATE 75 MG TAB PO SCH (10:18)
[2025-10-29] MEDS: ASPirin-EC 81 mg tab PO SCH (10:18)
[2025-10-29] MEDS: AZITHROMYCIN 500MG/250ML 250 ML IV SCH (10:20)
--- NOTE | 2025-10-29 10:49 | DVHPN2 ---
Consult Progress Note Date Seen: Oct 29, 2025 Subjective Review of Systems: CVS:Normal, RESPIRATORY:Normal, NEURO:Normal Other Systems: Denies any active cardiac symptoms. C/o exertional angina Objective vital signs Vital Sign Date Time Temp Pulse Resp B/P (MAP) Pulse Ox O2 Delivery O2 Flow Rate FiO2 10/29/25 10:18 76 110/65 10/29/25 09:00 76.0 18 96 76.0 10/29/25 08:00 Room Air* 0 21 Total Intake and Output 10/28/25 10/28/25 10/29/25 15:00 23:00 07:00 Intake Total 2012 ml 290 ml Output Total 200 ml Balance 1812 ml 290 ml medications Current Medications Medications Dose Ordered Sig/Anupama Route Start Time Stop Time Status Last Admin Dose Admin Acetaminophen 325 mg Q4HP PRN PO 10/28/25 13:45 Acetaminophen/ Hydrocodone Bitart 1 tab Q4HP PRN PO 10/28/25 13:45 Morphine Sulfate 2 mg Q4HPRN PRN IV 10/28/25 14:15 Nitroglycerin 0.4 mg Q5MINP PRN SL 10/28/25 13:45 10/28/25 21:57 0.4 MG Morphine Sulfate 2 mg Q30M PRN IV 10/28/25 14:15 Aspirin 81 mg DAILY PO 10/29/25 10:00 10/29/25 10:18 81 MG Atorvastatin Calcium 40 mg HS PO 10/28/25 22:00 10/28/25 22:24 40 MG Clopidogrel Bisulfate 75 mg DAILY PO 10/29/25 10:00 10/29/25 10:18 75 MG Metoprolol Tartrate 25 mg BID PO 10/28/25 22:00 10/29/25 10:18 25 MG Hydralazine HCl 10 mg Q6HP PRN IV 10/28/25 18:15 10/28/25 18:54 10 MG Ceftriaxone Sodium 50 ml @ 100 mls/hr DAILY@09 IV 10/29/25 09:00 10/29/25 10:19 100 MLS/HR Azithromycin 250 ml @ 125 mls/hr DAILY IV 10/29/25 10:00 10/29/25 10:20 125 MLS/HR Heparin Sodium/ Dextrose 250 ml @ 8 mls/hr Q24H IV 10/29/25 03:00 10/29/25 03:00 8 MLS/HR Examination: LUNGS:Normal, CVS:Normal, NEURO:Normal laboratory and microbiology Laboratory Tests 10/29/25 05:38 Test 10/29/25 05:38 Range/Units Serum Glucose 103 74-106 mg/dL Problem List/Assessment/Plan Problem List/Assessment/Plan Non ST-Elevation myocardial infarction, likely Type 1 History of coronary artery disease (on aspirin and Plavix therapy) Rule out structural heart disease Hypertension Dyslipidemia Sepsis COPD Tobacco use Cachexia Plan/Recommendation (Dr. Verduzco) * Transthoracic echocardiogram to evaluate cardiac function * Heparin drip per ACS protocol for 48 hrs. Discontinue on 10/30/2025 * Continue dual-antiplatelet therapy and lipid-lowering agent * Transition to Metoprolol XL and initiate Isosorbide mononitrate, titrate as tolerated * Close cardiac surveillance Case discussed with Dr. Verduzco. The patient prefers conservative medical management only. An extensive conversation was had with the patient regarding risks of not undergoing coronary angiogram which can include . Patient understands that she is taking a risk by not undergoing invasive cardiac work- up. We will respectfully honor the patient's wishes. Continue with the aforementioned medical plan of care. Thank you for allowing us to care for this patient. Please call with any questions or concerns. This medical document was created using an electronic medical record system with voice recognition software and computerized dictation system. Although this document has been carefully reviewed, there might still be some phonetic and typographical errors. Occasional wrong-word or ``sound-alike substitutions may have occurred due to the inherent limitations of voice recognition software. These areas are purely typographical due to imperfections of the software programs and do not reflect any compromise in the patient's medical care. Please read the chart carefully and recognize, using context, where these substitutions have occurred. Plan discussed with: Patient, Other Date of Service: Oct 29, 2025 Billing Provider: HERMILO CASTILLO Cardiology Common Codes: [id number] HERMILO CASTILLO Oct 29, 2025 10:49
--- NOTE | 2025-10-29 14:55 | DVHSR ---
APPROVED REPORT EXAM: Two-dimensional and M-mode echocardiogram with Doppler and color Doppler. Blood Pressure: 114/58 mmHg INDICATION nstemi RISK FACTORS Height: 5'5, Weight: 103 DIMENSIONS LVDd 3.2 (3.8-5.7cm) LA (2D) 3.4 (1.9-4.0cm) Aortic Root 3.3 (2.0-3.7cm) LVDs 1.9 (2.5-4.0cm) LA (MM) (1.9-4.0cm) Aortic Cusp Exc 1.0 (1.5-2.0cm) EF (%) 60.0 (55-70%) Rt. Atrium 4.0 (1.9-4.0cm) Asc. Aorta cm IVSd 1.2 (0.7-1.1cm) RV (D) 3.6 (1.8-2.4cm) PWd 0.9 (0.7-1.1cm) Mitral Valve Mitral Mitral Stenosis E wave 0.58m/s MV Mean GR. mmHg A wave 0.76m/s MV Peak GR. 89mmHg E/A ratio 0.8 2D MVA cm2 DECEL Time 183ms PRESS 1/2 Time ms Aortic Valve Aortic Valve Aortic Stenosis V1 1.21m/s AO Mean GR. 6mmHg V2 1.70m/s AO Peak GR. 12mmHg LVOT Diameter 1.7 (1.8-2.4cm) Doppler KEITH 1.61cm2 Pulmonic Valve V2 0.83m/s Tricuspid Valve TR Velocity 2.35m/s RVSP 29mmHg Conclusion 1-Normal left ventricle systolic function with estimated ejection fraction of 60%, there is a mild LV hypertrophy. Normal LV wall motion 2-Mildly dilated right ventricle with normal systolic function and estimated RVSP of 25-30 mmHg 3-Trace aortic, mitral and tricuspid regurgitation
--- NOTE | 2025-10-29 15:37 | DVHDS2 ---
Discharge Summary Date of Admission Oct 28, 2025 at 13:45 Date of Discharge: Oct 29, 2025 Labs/Diagnostic Data: Laboratory Results Test 10/29/25 09:06 10/29/25 05:38 10/28/25 17:51 10/28/25 17:41 Prothrombin Time 10.9 sec (9.3-11.8) Prothrombin Time INR 1.03 (0.9-1.15) Activated Partial Thromboplast Time 58.3 SEC (24.5-34.5) White Blood Count 13.0 10^3/uL (4.4-10.8) Red Blood Count 4.32 10^6/uL (4.0-5.20) Hemoglobin 12.4 g/dL (12.2-16.2) Hematocrit 36.7 % (36.0-46.0) Mean Corpuscular Volume 85.1 fL (80.0-100.0) Mean Corpuscular Hemoglobin 28.7 pg (28.0-32.0) Mean Corpuscular Hemoglobin Concent 33.7 g/dL (32.0-36.0) Red Cell Distribution Width 15.5 % (11.8-14.3) Platelet Count 324 10^3/uL (140-450) Mean Platelet Volume 8.3 fL (6.9-10.8) Neutrophils (%) (Auto) 81.7 % (37.0-80.0) Lymphocytes (%) (Auto) 6.5 % (10.0-50.0) Monocytes (%) (Auto) 10.2 % (0.0-12.0) Eosinophils (%) (Auto) 0.7 % (0.0-7.0) Basophils (%) (Auto) 0.9 % (0.0-2.0) Neutrophils # (Auto) 10.6 10 ^3/uL (1.6-8.6) Lymphocytes # (Auto) 0.8 10 ^3/uL (0.4-5.4) Monocytes # (Auto) 1.3 10 ^3/uL (0-1.3) Eosinophils # (Auto) 0.1 10 ^3/uL (0-0.8) Basophils # (Auto) 0.1 10 ^3/uL (0-0.2) Nucleated Red Blood Cells 0.1 % Sodium Level 141 mmol/L (136-145) Potassium Level 3.8 mmol/L (3.5-5.1) Chloride Level 106 mmol/L (98-107) Carbon Dioxide Level 24 mmol/L (20-31) Anion Gap 11 (5-15) Blood Urea Nitrogen 12 mg/dL (9-23) Creatinine 0.78 mg/dL (0.550-1.02) Glomerular Filtration Rate Calc 74 mL/min (>90) BUN/Creatinine Ratio 15.4 (10.0-20.0) Serum Glucose 103 mg/dL (74-106) Calcium Level 8.8 mg/dL (8.7-10.4) Magnesium Level 1.9 mg/dL (1.6-2.6) Total Bilirubin 0.6 mg/dL (0.2-1.0) Aspartate Amino Transferase (AST) 68 U/L (13-40) Alanine Aminotransferase (ALT) 15 U/L (7-40) Alkaline Phosphatase 73 U/L (46-116) Total Protein 5.4 g/dL (5.7-8.2) Albumin 3.5 g/dL (3.2-4.8) Thyroid Stimulating Hormone (TSH) 1.64 uIU/mL (0.55-4.78) Lactic Acid Level 2.0 mmol/L (0.4-2.0) Influenza Type A Antigen Negative (Negative) Influenza Type B Antigen Negative (Negative) SARS-CoV-2 Antigen (Rapid) Negative (NEGATIVE) Test 10/28/25 14:25 10/28/25 12:59 10/28/25 11:10 D-Dimer, Quantitative 4.28 mg/L FEU (0.0-0.49) Troponin I High Sensitivity 1622 ng/L (</=34) Urine Color Yellow (Yellow) Urine Clarity Clear (Clear) Urine pH 5.5 (5.0-9.0) Urine Specific [place] 1.016 (1.001-1.035) Urine Protein Negative (Negative) Urine Ketones 1+ (Negative) Urine Blood Negative /uL (Negative) Urine Nitrite Negative (Negative) Urine Bilirubin Negative (Negative) Urine Urobilinogen Normal mg/dL (Negative) Urine Leukocyte Esterase Trace /uL (Negative) Urine RBC <1 /hpf (0 - 4) Urine Microscopic WBC 3 /HPF (0-5) Urine Squamous Epithelial Cells Few /hpf (<5) Urine Bacteria None seen /hpf (None Seen) Urine Mucus Few (None Seen) Urine Glucose Normal mg/dL (Normal) Hemoglobin A1c 5.4 % A1C (<5.7) Triglycerides Level 111 mg/dL (< 150) Cholesterol Level 272 mg/dL (< 200) LDL Cholesterol 174 mg/dL (< 100) HDL Cholesterol 82 mg/dL (40-59) Other Laboratory Tests 10/29/25 05:38 Brief Hx & Hospital Course: Patient is an 84-year-old female past medical history of CAD, smoker who presents [facility] complaints of chest pain for the past day that she described as substernal, pressure-like and nonradiating. At bedside, patient was noted to be chest pain-free. Vitals on arrival were notable for sinus tachycardia hypertension with systolic pressure in the 150s. CBC was notable for leukocytosis of 14.9. BMP was notable for creatinine of 1.29. Troponin was elevated at 262 and anton to 1622. Patient met criteria for sepsis and was started on sepsis protocol due to elevated lactic acid. Patient is noted to have a STEMI 5 years prior in which the left heart cath noted a very small rupture of the diagonal 2 vessel measuring 1.5 mm in size, moderate RCA stenosis. No drug-eluting stent was placed given the small vessel anatomy. Patient is currently taking Plavix and denies taking any other medications at this time. Patient was admitted for NSTEMI and sepsis workup. Patient was started on heparin drip. Cardiology evaluated the patient. Patient was offered left heart cath but given high risk of the procedure given anatomy noted on left heart cath 5 years prior, patient declined to have this procedure. It was recommended that patient stay on Plavix, aspirin and statin. Echocardiogram was done which showed LVEF of 60%. Patient was noted to have leukocytosis with associated productive cough. Per family, patient lives with 26 cats and a very poor sanitary condition with feces everywhere. Patient apparently had a "E. coli infection" a year ago. Blood cultures were taken here which did not show any growth to date. Leukocytosis improved from 14.9-13.0 and patient was treated with ceftriaxone and azithromycin. Flu and COVID was negative. Given patient's history, concern for toxoplasma gondii should also be considered. Patient will be treated on ceftriaxone and doxycycline and will go to SNF for IV antibiotics. Patient will receive ceftriaxone 1 g IV daily from 10/30 to 11/05 and will also receive doxycycline 100 mg IV twice daily for this duration. Plan of care was also discussed with daughter. Patient was in agreement with the plan. [facility] case management help facilitate transfer. Patient discharged in stable condition. Condition at Discharge: Good Final Diagnosis/Problems List NSTEMI Secondary Diagnosis: Upper Respiratory Infection Concern for Toxoplasma Gondii CAD Tobacco Dependence Discharge Disposition: Jail Facility Discharge Instruct/Medications Diet: Cardiac 2g Na,low cholest Activity: No Restrictions, As Tolerated Follow Up/Referral: Follow up with cardiology. Follow up with PCP. Medications: Continue aspirin, plavix, atorvastatin. IV AB to be given for pneumonia at SNF. Scheduled Amlodipine Besylate (Amlodipine Besylate), 1 TAB PO DAILY, (Reported) Beclomethasone Dipropionate (Qvar Redihaler), 1 PUFF PO BID, (Reported) Clopidogrel Bisulfate (Clopidogrel), 1 TAB PO DAILY, (Reported) Metoprolol Tartrate (Lopressor Tablet), 1 TAB PO DAILY, (Reported) Ranolazine (Ranolazine ER), 1 TAB PO BID, (Reported) Miscellaneous Medications Albuterol Sulfate (Albuterol Sulfate Hfa), INH, (Reported) Discharge Statement: "Patient was advised to return to the ER or call 911 if any headaches, dizziness, shortness of breath, chest pain, abdominal pain, bleeding, fevers, or worsening of medical condition. Patient was counseled about treatment plan, medications, possible side effects, patientverbalized understanding. All questions were answered to the best of my ability. This discharge took greater then 30 minutes in planning, reviewing documentation, counseling the patient, and discussing with other team members." ASSESSMENT ASSESSMENT Assessment NSTEMI YANI PRADO DO Oct 29, 2025 15:37
[2025-10-29 15:55] LABS: INR 1.01 (0.9-1.15); Prothrombin Time 10.7 sec (9.3-11.8)
[2025-10-29] MEDS: DOXYCYCLINE 100 MG TAB/CAP PO ONE (16:28)
[2025-10-29 17:08] LABS: Partial Thromboplastin Time 58.9 SEC (24.5-34.5)
[2025-10-30] MEDS ORDERED: ISOSORBIDE MONONITRATE ER 60 MG TAB PO SCH (10:00)
[2025-10-30] MEDS ORDERED: METOPROLOL SUCCINATE XL 50 MG TAB PO SCH (10:00)
--- NOTE | 2025-10-30 22:16 | ECG ---
[facility] Test Date: 2025-10-28 Test Time: 12:40:14 Pat Name: BENITO FISHER Department: Room: 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
--- NOTE | 2025-10-31 10:07 | ECG ---
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
== END 2025-10-29 18:20 | DRG 871 ==
LOC: ER 10:54 → EDBD 10:54 → EDUNIT# 10:54 → OVERFLOW 13:45 → TELE-WESTW 21:36
PROVIDERS: ADMIT Student in an Organized Health Care Education/Training Program; ATTEND Student in an Organized Health Care Education/Training Program
DX: A41.9 Sepsis, unspecified organism (principal); I21.4 Non-ST elevation (NSTEMI) myocardial infarction; B58.89 Toxoplasmosis with other organ involvement; R65.20 Severe sepsis without septic shock; Z79.02 Long term (current) use of antithrombotics/antiplatelets; J44.9 Chronic obstructive pulmonary disease, unspecified; I10 Essential (primary) hypertension; E78.5 Hyperlipidemia, unspecified; Z20.822 Contact with and (suspected) exposure to COVID-19; F17.210 Nicotine dependence, cigarettes, uncomplicated; I25.10 Atherosclerotic heart disease of native coronary artery without angina pectoris; R29.6 Repeated falls; I25.2 Old myocardial infarction
CPT/HCPCS: 36415; 70450; 71045; 71275; 80048; 80053; 80061; 81001; 83036; 83605; 83735; 84443; 84484; 85025; 85379; 85610; 85730; 87040; 87426; 87804; 93005; 93306; 99291; G0378